=== PATIENT | male | born 1940 | race Caucasian/White ===

== ENCOUNTER 2024-10-25 19:07 | Observation (INO) | payer MEDICARE, OTHER, SELFPAY ==
[2024-10-25] VITALS (9 sets, daily range): BP systolic 118–154; BP diastolic 60–83; BMI 23.8; BMI 24.6
[2024-10-25 13:48] LABS: % Basophils 0.3 % (0-2); % Immature Granulocytes 0.5 % (0-0.5); % Lymphocytes 7.9 % (20.5-51.1); % Monocytes 15.7 % (1.7-9.3); % Neutrophils 74.6 % (42.2-75.2); Absolute Eosinophils 0.1 10^3/uL (0-0.7); Absolute Lymphocytes 0.7 10^3/uL (1.2-3.4); Absolute Monocytes 1.4 10^3/uL (0.1-0.6); Absolute Neutrophils 6.6 10^3/uL (1.4-6.5); Hematocrit 34.8 % (39.0-52.0); Mean Corp Hgb Conc. 34.5 g/dL (33.0-37.0); Mean Corpuscular Hgb 31.3 pg (27.0-31.0); Mean Corpuscular Volume 90.9 fL (80.0-94.0); Nucleated Red Blood Cells % 0 % (-); Platelet Count 278 10^3/uL (130-400); Red Blood Cell Count 3.83 10^6/uL (4.70-6.10); Red Cell Dist. Width 14.8 % (11.5-14.5); White Blood Cell Count 8.8 10^3/uL (4.8-10.8)
[2024-10-25 13:53] LABS: ALT (SGPT) 15 U/L (0-50); AST (SGOT) 19 U/L (17-59); Albumin 3.9 g/dl (3.5-5.0); Alkaline Phosphatase 64 U/L (38-126); Blood Urea Nitrogen 19 mg/dl (9-20); Calcium 11.1 mg/dl (8.4-10.2); Carbon Dioxide 27 mmol/L (22-30); Chloride 107 mmol/L (98-107); Glucose 87 mg/dl (70-99); Potassium 4.4 mmol/L (3.5-5.1); Sodium 142 mmol/L (135-145); Total Bilirubin 0.8 mg/dl (0.2-1.3); Total Protein 6.4 g/dl (6.3-8.2); eGFR 58.89
--- NOTE | 2024-10-25 15:58 | EDRN ---
Dr. English in room w/ pt.
--- NOTE | 2024-10-25 16:20 | ED.GENMED ---
History of Present Illness
General
Chief Complaint: Weakness
Source: patient and family
Time Seen by Provider: 10/25/24 15:49
History of Present Illness
History of Present Illness:
This patient is an 84-year-old male presents emergency department in the presence of his son and [id number]. 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 However, in
the last 2 weeks he has had progressive decline such that he is now using a cane and sometimes a walker associated with multiple falls. He is describing feeling weak, with occasional episodes of dizziness/imbalance when he is upright. He saw a
neurologist 2 weeks ago, and he was referred for cervical spine MRI which was scheduled for today. However, when he tried to get out of bed, he was unable to do so, and fell down onto the floor which he describes as sliding down. He did not suffer
any injury from that fall. However, yesterday again while getting out of bed he fell and suffered a left clavicle fracture. He denies fever, chills, diaphoresis, chest pain, palpitations, dyspnea, nausea, vomiting, urinary symptoms, incontinence,
numbness, tingling, focal weakness. He denies back pain. Family states that he seems to have greater difficulty with fine movements, that his voice sounds slightly weaker than usual, and with light activity he seems to get dyspneic and need to
rest.
Past History
Past History
ED Past Medical History: Other (Hyperparathyroidism, hypertension, spinal stenosis, COPD)
ED Past Surgical History: Other (Appendectomy, hernia, intussusception, GIST removal)
Social History
Tobacco: Non-smoker
Alcohol: None
Drug: None
Personal:
Living: with family
Phy Exam
Physical Exam
Physical Exam:
GENERAL: Alert , in no apparent distress
EYE: pupils equal and reactive, EOMI, no nystagmus, no photophobia
NECK: Supple, no significant adenopathy, no tenderness to palpation in the midline.
ENT: o/p clr, mmm, voice clear, no trismus, no drool.
CARDIAC: Regular rate and rhythm .
LUNGS: Clear breath sounds bilaterally, no acute respiratory distress, no wheezes/rales/rhonchi
ABDOMEN: Soft, without focal tenderness, no r/g
NEUROLOGICAL: Alert and oriented, no focal neuro deficits, [id number] normal, cranial nerves II through XII intact, sensation intact to light touch, motor 5 out of 5, 2+ patellar reflexes bilaterally
SKIN: Warm and dry, skin intact however several healing abrasions noted lower extremities. Resolving bruising noted to left upper extremity and left clavicle area.
MUSCULOSKELETAL: No edema, well perfused.
PSYCH: Normal and appropriate interaction.
Course
Orders/Labs/Results
Orders:
Orders
10/25/24 13:32
Complete Blood Count/With Diff Urgent
Comprehensive Metabolic Panel Urgent
10/25/24 Dinner
Cholesterol Lowering
At Your Request: Limited Participation
Cholesterol Lowering: Sodium, 2 Gram
10/25/24 16:16
Electrocardiogram (*1) Urgent
Reason for Study: Vertigo / Dizzy
EKG- Treatment ONCE
Urinalysis Reflex To Culture Urgent
Date Specimen was Collected: 10/26/24
Time Specimen was Collected: 10:59
10/25/24 16:17
CT Head W/o Iv Contrast Urgent
Comment:
Reason For Exam: weakness
10/25/24 16:24
Acetaminophen [Tylenol] 1,000 mg PO NOW STA
10/25/24 18:48
Admit/Transfer Patient As Directed
Co-Sign Provider:
Level of Care: Observation services
Assign to:: Medical/Surgical
Physician / Group: Alexys Chahal
Diagnosis: weakness, hypercalcemia
PRN Pain Medication Management As Directed
May give lesser potent ordered pain med per pt: Yes
preference::
Protocol:: Medication orders for pain may be administered in a
manner that supports deferring to patient preference
when the pt is:
- Requesting an ordered lesser potent pain medication.
Least to most potent pain medications are defined
as: acetaminophen < NSAID < tramadol < opioids
(morphine, oxycodone, hydromorphone).
- Requesting a lesser dose of the same medication IF
ORDERED.
- Requesting a less intrusive route of administration
if both routes are prescribed by the provider (PO <
IV).
10/25/24 18:49
Code Status As Directed
Resuscitation Status: Full Code
10/25/24 18:54
0.9% Sodium Chloride 500 ml [Nss] 500 ml IV BOLUS
10/25/24 21:16
0.9% Sodium Chloride 1000 ml [Nss] 1,000 ml IV 100 mls/hr
Bupropion Regular Release [Wellbutrin Regular Release] 100 mg PO BID
10/25/24 21:16
Activity As Directed
Activity Level: Out of Bed-Early Mobility
Vital Signs As Directed
Frequency: Per unit guidelines
Weight As Directed
Frequency: Once
Comment: on admission
DX Deep Vein Thrombosis Video Routine
10/25/24 22:00
Alprazolam [Xanax] 0.5 mg PO HS
Atorvastatin [Lipitor] 10 mg PO HS
Finasteride [Proscar] 5 mg PO HS
10/25/24 23:00
Acetaminophen [Tylenol] 650 mg PO Q4HPRN PRN
10/26/24 06:59
Basic Metabolic Panel IN AM
10/26/24 08:00
Amlodipine [Norvasc] 5 mg PO DAILY
Budesonide/Formoterol 160/4.5 [Symbicort 160/4.5 Mcg Inhaler] 2 puff INH R BID
Cholecalciferol (Vitamin D3) [VITAMIN D3 (cholecalciferol)] 25 mcg PO DAILY
Escitalopram Oxalate [Lexapro] 20 mg PO DAILY
Metoprolol Xl [Toprol Xl] 50 mg PO DAILY
Pantoprazole [Protonix] 40 mg PO DAILY
Sodium/Potassium Phosphate Mix [Neutra-Phos Powder Packet] 1 mg PO DAILY
10/26/24 18:00
Enoxaparin Sodium [Lovenox] 40 mg SC QPM
Abnormal Lab Results
10/25/24
13:32
RBC 3.83 L 10^6/uL
(4.70-6.10)
Hgb 12.0 L g/dL
(13.0-18.0)
Hct 34.8 L %
(39.0-52.0)
MCH 31.3 H pg
(27.0-31.0)
RDW 14.8 H %
(11.5-14.5)
Absolute Neuts (auto) 6.6 H 10^3/uL
(1.4-6.5)
Absolute Lymphs (auto) 0.7 L 10^3/uL
(1.2-3.4)
Absolute Monos (auto) 1.4 H 10^3/uL
(0.1-0.6)
Lymphocytes % 7.9 L %
(20.5-51.1)
Monocytes % 15.7 H %
(1.7-9.3)
Calcium 11.1 H mg/dl
(8.4-10.2)
10/25/24 13:32
10/25/24 13:32
Vital Signs
Initial and Last Documented VS:
Initial Vital Signs
Temp Pulse Resp BP Pulse Ox
97.6 F 75 18 118/63 97
10/25/24 13:23 10/25/24 13:23 10/25/24 13:23 10/25/24 13:23 10/25/24 13:23
Last Documented Vital Signs
Temp Pulse Resp BP Pulse Ox
98.1 F 89 18 118/72 98
10/29/24 13:53 10/29/24 13:53 10/29/24 13:53 10/29/24 13:53 10/29/24 13:53
*Critical Care Note
Total Time (30-74mins, 75-104mins- exclusive of procedures): Not Applicable
Update Note
Update Note:
Patient presents to the Emergency Department with ___progressive weakness and falls
Number and Complexity of Problems Addressed at the Encounter
� Chronic conditions affecting care:
� Acute Exacerbation and/or Progression of Chronic Illness:
� Differential Diagnosis includes: But not limited to MS, myasthenia gravis, degenerative disease, Parkinson-like syndrome, etc. etc. etc.
Amount and/or Complexity of Data to be Reviewed and Analyzed
� I performed an independent evaluation of and my interpretation is:
EKG:Read by me, normal sinus rhythm, normal rate, normal axis, no acute ischemia
CT:No acute intracranial abnormality noted.
Findings of possible acute on chronic maxillary sinusitis. Recommend clinical correlation.
Xrays:
Laboratory Studies:Mild anemia noted, hyper calcium level noted in his baseline as per son
Other:
� Review of other/old records reveals:
� Clinical information was obtained by an independent historian: who is an ED physician, [id number] both of whom are bedside
� Prescriptions/Medications Considered but not given:
� Further testing considered but not performed:
Risk of Complications and/or Morbidity or Mortality of Patient Management
� Social determinants of health affecting care:
� Discussion with other providers (PCP, Hospitalists, Consultants, etc):
� Escalation of care including admission/observation vs risk of discharge considered:Patient is not able to return to independent living situation where he has at this time given his progressive symptoms. Recommend overnight
admission/observation, neuroconsult in the morning, discussed with hospitalist the plan. Family aware and in agreement.
ED Attending Note
-
Portions of this chart may have been created with voice recognition software.� Occasional wrong word or��sound alike� substitutions may have occurred due to the inherent limitations of voice recognition software.
Discharge Plan
Departure
Patient Disposition: Admit
Date of Disposition: 10/25/24
Time of Disposition: 17:48
Presentation/result/management discussed w/ accepting MD/DO: Hospitalist
Condition: Good
Discharge Problem:
Weakness
Interventions
Interventions:
*General Assessment Last Done: 10/25/24 16:31
*Neglect/Abuse Screening Last Done: 10/25/24 16:32
*ED- Fall Risk Assessment Last Done: 10/25/24 16:31
*Nursing Disposition Last Done: 10/25/24 21:19
ED- Cardiac Assessment Last Done: 10/25/24 16:40
ED- Neurological Assessment Last Done: 10/25/24 16:40
ED- Pulmonary Assessment Last Done: 10/25/24 16:40
Discharge Date and Time
Discharge Date/Time: 10/25/24 21:20
[2024-10-25] MEDS: TYLENOL 1000 MG PO (16:29)
--- NOTE | 2024-10-25 17:58 | HPS.HSE ---
Family Physician
-
Family Physician: Neo Varela
Chief Complaint
-
generalized weakness and recurrent falls
History of Present Illness
Patient is a 84-year-old male with past medical history significant for hypertension, COPD, hyperparathyroidism and spinal stenosis who presented to [facility] ED for evaluation of generalized weakness and recurrent falls. Patient son and DIL brought
patient in for evaluation following a 2 week decline. 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 Over the past two weeks it is reported that patient has had increased weakness requiring a cane and/or walker
to ambulate. He reports recurrent falls over past two weeks. He reports feeling weak with intermittent dizziness/imbalance when he is standing. Patient saw neurology 2 weeks ago who ordered a cervical spine MRI, which was scheduled for today. When
patient woke this morning he was unable to get out of bed and slid down side of bed to floor from profound weakness. He denies any injury with today's fall. Patient had a fall yesterday resulting in a left clavicle fracture. Patient denies any
fevers, chills, chest pain, cough, shortness of breath, nausea, vomiting, urinary symptoms, incontinence, numbness or tingling.
Medical History
Past Medical History
Past Medical History: Reports Other
Additional Past Medical History:
hypertension
hyperlipidemia
COPD
hyperparathyroidism
spinal stenosis
BPH
depression/anxiety
GERD
Past Surgical History: Reports Other
Additional Past Surgical History:
appendectony
hernia repair
intussusception
GIST removal
Social History
Tobacco: Non-smoker
Alcohol: None
Drug: None
Personal:
Living: With Family
Employment: Retired
Family History
Family History: Not pertinent
Allergies / Home Medications
Allergies reflects when Allergies were last updated in [employer].
Home Medications with original date entered in [employer]
Allergy/Medication List:
Allergies
Allergy/AdvReac Type Severity Reaction Status Date / Time
No Known Allergies Allergy Verified 10/25/24 13:28
Home Medications
alprazolam 1 mg tablet (Xanax) 0.5 mg PO HS 10/25/24
amlodipine 5 mg tablet 5 mg PO DAILY 10/25/24
bupropion HCl 100 mg tablet 100 mg PO BID 10/25/24
cholecalciferol (vitamin D3) 25 mcg (1,000 unit) tablet (Vitamin D3) 25 mcg PO DAILY 10/25/24
escitalopram oxalate 20 mg tablet (Lexapro) 20 mg PO DAILY 10/25/24
finasteride 5 mg tablet 5 mg PO HS 10/25/24
fluticasone furoate 100 mcg-vilanterol 25 mcg/dose inhalation powder (Breo Ellipta) 1 inh inhalation DAILY 10/25/24
metoprolol succinate 50 mg tablet,extended release 24 hr 50 mg PO DAILY 10/25/24
omeprazole 20 mg capsule,delayed release 20 mg PO DAILY 10/25/24
simvastatin 20 mg tablet 20 mg PO HS 10/25/24
sodium di- and monophosphate-potassium phos monobasic 250 mg tablet (Phosphorous) 1 tab PO DAILY 10/25/24
Review of Systems
-
History Source: Patient
Constitutional: Reports No Symptoms
EENT: Reports No Symptoms
Respiratory: Reports No Symptoms
Cardiac: Reports No Symptoms
Abdomen/GI: Reports No Symptoms
: Reports No Symptoms
Musculoskeletal: Reports No Symptoms
Skin: Reports No Symptoms
Neurological: Reports Dizzy and Weakness
Endocrine: Reports No Symptoms
Hematologic/Lymphatic: Reports No Symptoms
Psych: Reports No Symptoms
Physical Exam
Vital Signs
Vital Signs
Temp Pulse Resp BP Pulse Ox
97.6 F 66 19 136/60 99
10/25/24 13:23 10/25/24 17:00 10/25/24 17:00 10/25/24 17:00 10/25/24 17:00
Physical Exam
General: Well Developed, Well Nourished, No Apparent Distress, Comfortable and Conversant
HEENT: NormoCephalic, Moist mucous membranes, Atraumatic, [place] Conjunctivae, Nose Appears Normal and Ears Appear Normal
Respiratory: Clear
Cardiac: S1/S2 and Regular Rhythm
Breast: Deferred by me
GI: Soft, Non Tender, Non Distended and Normal Bowel Sounds; No Organomegaly
Rectal: Deferred by Provider
Genito-urinary: Deferred by me
Musculoskeletal: No Clubbing, No Cyanosis and No Edema
Skin: IV/Catheter Site and Other (multiple bilateral lower extremity healing abrasions, bruising to left upper extremity and clavicle present )
Neuro: Awake, Alert, AO x 3 and Nonfocal/grossly intact
Psych: Calm
Laboratory Results
-
10/25/24 13:32
10/25/24 13:32
Laboratory Results
Total Bilirubin 0.8 mg/dl (0.2-1.3) 10/25/24 13:32
AST 19 U/L (17-59) 10/25/24 13:32
ALT 15 U/L (0-50) 10/25/24 13:32
Alkaline Phosphatase 64 U/L (38-126) 10/25/24 13:32
Data Reviewed
-
CT Scan: Report Reviewed by me (Head: No acute intracranial abnormality noted. Findings of possible acute on chronic maxillary sinusitis. Recommend clinical correlation.)
Medical Tests (Nuc Med, Echo, EKG etc): Report Reviewed by me (EKG: NORMAL SINUS RHYTHM)
Lab Data: Labs Reviewed by me
Impression/Plan
-
IMPRESSION/PLAN:
#recurrent falls, generalized weakness
Head CT: No acute intracranial abnormality noted.
Findings of possible acute on chronic maxillary sinusitis. Recommend clinical correlation.
EKG: NORMAL SINUS RHYTHM
- Admit to telemetry
- Consult Neurology
- Consult PT/OT
- Case management consult
#hypercalcemia
#Hx hyperparathyroidism
Ca 11.1
- IVF
- monitor BMP
- consult Nephrology
#hypertension
- continue amlodipine and metoprolol
#hyperlipidemia
- continue simvastatin
#COPD
- continue Breo Ellipta
#BPH
- continue finasteride
#depression/anxiety
- continue alprazolam, bupropion, escitalopram
#GERD
- continue omeprazole
#spinal stenosis
Code status: full code
DVT prophylaxis: Lovenox sq
--- NOTE | 2024-10-25 20:06 | W.PN.UPDATE ---
Update Note
Progress Note Update
This note serves as an addendum to the H&P by lesson instructor JASON
Yolanda Cheatham
HPI
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
- BiB son and DIL vfor evaluation following a 2 week decline.
- for evaluation of generalized weakness and recurrent falls.
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
- over the past two weeks it is reported that patient has had increased weakness requiring a cane and/or walker to ambulate.
- associated with recurrent falls over past two weeks attributed to intermittent dizziness/imbalance when he is standing.
- Patient saw Neurology 2 weeks ago who ordered a cervical spine MRI, which was scheduled for today.
- When patient woke this morning he was unable to get out of bed and slid down side of bed to floor from profound weakness.
- He denies any injury with today's fall. Patient had a fall yesterday resulting in a left clavicle fracture.
ROS
Patient denies any fevers, chills, chest pain, cough, shortness of breath, nausea, vomiting, urinary symptoms, incontinence, numbness or tingling.
Vital Signs
Temp Pulse Resp BP Pulse Ox
97.6 F 72 19 145/64 99
10/25/24 13:23 10/25/24 20:00 10/25/24 20:00 10/25/24 20:00 10/25/24 17:16
PE
Gen: No Apparent Distress, Comfortable and Conversant
HEENT: NormoCephalic, Moist mucous membranes, Atraumatic,
Neck: supple
Lungs: CTA
Cor: S1 S2 RRR
Abdomen: Soft, Non Tender, Non Distended
PRODUCTION SKI REPAIRER: AAO3, NFND
MS: no edema
Skin: multiple bilateral lower extremity healing abrasions, bruising to left upper extremity and clavicle present
Psych: AAO3
Laboratory Tests
10/25/24
13:32
WBC 8.8
Hgb 12.0 L
Plt Count 278
Creatinine 1.2
eGFR 58.89
EKG
NORMAL SINUS RHYTHM
NORMAL ECG
NO PREVIOUS ECGS AVAILABLE
HCT
No acute intracranial abnormality noted.
Findings of possible acute on chronic maxillary sinusitis. Recommend clinical correlation.
NO PRIOR hospitalist or admission:
ASSESSMENT & PLAN
Recurrent falls, generalized weakness DDX : Dehydration , symtomatic Spinal stenosis, subacute CVA events
NEG HCT
NSR on EKG
- TLM
- MRI Brain
- PT/OT
- Neurology consult
Hypercalcemia : unremarkable EKG
HX hyperparathyroidism
Ca 11.1
- Total of 1.5L IV NS
- trend Ca
- Renal consult
Benign HTN
- c/w ASSEMBLIES AND INSTALLATIONS INSPECTOR amlodipine and metoprolol
Hyperlipidemia
- c/w simvastatin
COPD HX
- c/w ASSEMBLIES AND INSTALLATIONS INSPECTOR Breo Ellipta
BPH
- c/w finasteride
HX depression/anxiety
- c/w ASSEMBLIES AND INSTALLATIONS INSPECTOR alprazolam, bupropion, escitalopram
DVT Px: LMWH
Full ocde
Obs MS
[2024-10-25] MEDS: NSS 500 IV (21:06)
[2024-10-25] MEDS: LIPITOR 10 MG PO (21:52)
[2024-10-25] MEDS: WELLBUTRIN REGULAR RELEASE 100 MG PO (21:52)
[2024-10-25] MEDS: XANAX 0.5 MG PO (21:52)
[2024-10-25] MEDS: PROSCAR 5 MG PO (21:52)
[2024-10-25] MEDS: NSS 1000 IV (21:54)
[2024-10-26] MEDS: TYLENOL 650 MG PO (05:57)
[2024-10-26 07:00] VITALS: BP 159/75
[2024-10-26] MEDS: SYMBICORT 160/4.5 MCG INHALER 2 PUFF INH ×2 (07:38→20:06)
[2024-10-26 08:07] LABS: Blood Urea Nitrogen 14 mg/dl (9-20); Carbon Dioxide 23 mmol/L (22-30); Chloride 110 mmol/L (98-107); Estimated Creatinine Clearance 56 ml/min; Glucose 81 mg/dl (70-99); Sodium 141 mmol/L (135-145); eGFR > 60.00
--- NOTE | 2024-10-26 08:35 | W.CON.NEPH ---
Consultation
-
Date/Time Consultation Requested: 10/26/2024 7 AM
Date/Time Consultation Performed: 10/26/24 8 AM
Requesting Provider: Dr Chahal
Performing Provider: Dr Trejo
Reason for Consultation: hypercalcemia
Medical History
-
Chief Complaint: hypercalcemia
History of Present Illness:
Patient is a 84-year-old male with hypertension controlled on a multidrug regimen, COPD controlled with inhaler therapy, hyperparathyroidism for several years treated with Prolia every 6 months by his report, and spinal stenosis followed by pain
management who presented to ED for evaluation of generalized weakness and recurrent falls. Patient's son and DIL brought patient in for evaluation following a progressive 2 week decline. Patient is normally independent and is primary caregiver for
his with dementia. Over the past two weeks it is reported that patient has had increased weakness requiring a cane and/or walker to ambulate. He reports recurrent falls over past two weeks. He reports feeling weak with intermittent
dizziness/imbalance when he is standing. Patient saw neurology 2 weeks ago who ordered a cervical spine MRI, which was scheduled for today. When patient woke this morning he was unable to get out of bed and slid down side of bed to floor from
profound weakness. He denies any injury with today's fall. Patient had a fall yesterday resulting in a left clavicle fracture. Patient denies any fevers, chills, chest pain, cough, shortness of breath, nausea, vomiting, urinary symptoms,
incontinence, numbness or tingling.
Past Medical History
hypertension
hyperlipidemia
COPD
hyperparathyroidism
spinal stenosis
BPH
depression/anxiety
GERD
appendectony
hernia repair
intussusception
GIST removal
Social History
Tobacco: Non-Smoker
Alcohol: None
Family History
Family History: Not Pertinent
Allergies / Home Medications
Allergy/AdvReac Type Severity Reaction Status Date / Time
No Known Allergies Allergy Verified 10/25/24 13:28
�Medication �Instructions �Recorded �Confirmed �Type
alprazolam 1 mg tablet (Xanax) 0.5 mg PO HS 10/25/24 10/25/24 History
amlodipine 5 mg tablet 5 mg PO DAILY 10/25/24 10/25/24 History
bupropion HCl 100 mg tablet 100 mg PO BID 10/25/24 10/25/24 History
cholecalciferol (vitamin D3) 25 25 mcg PO DAILY 10/25/24 10/25/24 History
mcg (1,000 unit) tablet (Vitamin
D3)
escitalopram oxalate 20 mg tablet 20 mg PO DAILY 10/25/24 10/25/24 History
(Lexapro)
finasteride 5 mg tablet 5 mg PO HS 10/25/24 10/25/24 History
fluticasone furoate 100 1 inh inhalation DAILY 10/25/24 10/25/24 History
mcg-vilanterol 25 mcg/dose
inhalation powder (Breo Ellipta)
metoprolol succinate 50 mg 50 mg PO DAILY 10/25/24 10/25/24 History
tablet,extended release 24 hr
omeprazole 20 mg capsule,delayed 20 mg PO DAILY 10/25/24 10/25/24 History
release
simvastatin 20 mg tablet 20 mg PO HS 10/25/24 10/25/24 History
sodium di- and 1 tab PO DAILY 10/25/24 10/25/24 History
monophosphate-potassium phos
monobasic 250 mg tablet
(Phosphorous)
Review of Systems
-
Patient reports no pain, no issues with the eating
All other systems: Negative unless noted
Physical Exam
Vital Signs
Vital Signs
Temp Pulse Resp BP Pulse Ox
97.6 F 76 16 159/75 96
10/26/24 07:00 10/26/24 07:44 10/26/24 07:44 10/26/24 07:00 10/26/24 07:44
Lab Results
WBC 8.8 10^3/uL (4.8-10.8) 10/25/24 13:32
RBC 3.83 10^6/uL (4.70-6.10) L 10/25/24 13:32
Hgb 12.0 g/dL (13.0-18.0) L 10/25/24 13:32
Hct 34.8 % (39.0-52.0) L 10/25/24 13:32
Plt Count 278 10^3/uL (130-400) 10/25/24 13:32
Sodium 141 mmol/L (135-145) 10/26/24 06:59
Potassium 4.0 mmol/L (3.5-5.1) 10/26/24 06:59
Chloride 110 mmol/L (98-107) H 10/26/24 06:59
Carbon Dioxide 23 mmol/L (22-30) 10/26/24 06:59
BUN 14 mg/dl (9-20) 10/26/24 06:59
Creatinine 1.0 mg/dL (0.7-1.3) 10/26/24 06:59
eGFR > 60.00 10/26/24 06:59
Glucose 81 mg/dl (70-99) 10/26/24 06:59
Calcium 10.0 mg/dl (8.4-10.2) 10/26/24 06:59
Albumin 3.9 g/dl (3.5-5.0) 10/25/24 13:32
Laboratory Tests
10/25/24 10/26/24
13:32 06:59
Calcium 11.1 H
PTH Intact 268.0 H
Physical Exam
Patient is awake alert oriented and in no distress. Mood and affect were pleasant, insight and judgment were fair. Pupils are equal round and reactive to light, extraocular movements are intact, sclera were anicteric. Hearing was normal, ears and
nose are intact. Oropharynx was clear. Neck was supple with trachea midline and no thyromegaly. Heart was regular rate and rhythm without rubs. Lower extremities without edema. Lungs were clear to auscultation bilaterally and with normal
excursion. Abdomen was soft, nontender, with normal active bowel sounds, and no hepatosplenomegaly. Skin was without rash and with normal turgor. He was unable to recall his relations coordinator.
Data Reviewed
-
CT Scan: Report Reviewed by me (CT head 10/25/2024 no acute disease)
Medical Tests (Nuc Med, Echo etc): Image Personally Visualized and interpreted (EKG 10/25/2024 by my read normal sinus rhythm)
Labs: Labs Reviewed by me
Assessment/Plan
-
Assessment
Falls, weakness
Hypercalcemia
Primary hyperparathyroidism
Hypertension
COPD
BPH
Spinal stenosis
Plan
Laboratory values consistent with primary hyperparathyroidism
He has no recollection if he has ever been on Cinacalcet
I have not met this gentleman previously though he does appear to be somewhat confused
Calcium has improved with IV fluids however
Check phosphorus
If calcium rises again, would use Cinacalcet
Hold on phosphorus supplementation
[2024-10-26] MEDS: LEXAPRO 20 MG PO (08:42)
[2024-10-26] MEDS: WELLBUTRIN REGULAR RELEASE 100 MG PO ×2 (08:42→20:45)
[2024-10-26] MEDS: VITAMIN D3 (cholecalciferol) 25 MCG PO (08:42)
[2024-10-26] MEDS: PROTONIX 40 MG PO (08:42)
[2024-10-26] MEDS: TOPROL XL 50 MG PO (08:42)
[2024-10-26] MEDS: NEUTRA-PHOS POWDER PACKET 1 MG PO (08:42)
[2024-10-26] MEDS: NORVASC 5 MG PO (08:42)
[2024-10-26 09:27] LABS: Phosphorus 2.4 mg/dl (2.5-4.5)
[2024-10-26 11:25] LABS: Urine Albumin Negative (Neg - Trace); Urine Bilirubin Negative (Negative); Urine Character Clear (Clear); Urine Color Yellow; Urine Glucose Negative (Negative); Urine Ketone 2+ (Negative); Urine Leukocyte Negative (Negative); Urine Nitrite Negative (Negative); Urine Occult Blood Negative (Negative); Urine Urobilinogen Negative (Neg - 1+)
--- NOTE | 2024-10-26 14:21 | W.PN.HOSP.TC ---
Today's Communication/Plan
-
await neuro eval
PT/OT
Assessment / Plan
Assessment / Plan
pt is an 84 year old male
recurrent falls, generalized weakness--sees neuro at [facility]--heat CT without acute findings--brain MRI also without acute findings but possible acute on chronic sinusitis--Parkinson's, PMR, spinal stenosis with DJD all possible--await neuro eval,
possible need for MRI C/T/L/S spine--PT/OT--might need SNF
hypercalcemia--Hx primary hyperparathyroidism --usual calcium level is 11.7--apprec renal--hold on phos repletion--calcium 11.1 with elevated iPTH--cont IVF
Essential hypertension--continue amlodipine and metoprolol
hyperlipidemia--continue simvastatin
COPD--continue Breo Ellipta
BPH--continue finasteride
depression/anxiety--continue alprazolam, bupropion, escitalopram
GERD--continue omeprazole
spinal stenosis--may need MRIs as above
acute on chronic sinusitis--noted--would not start ABX at this point--may need outpt ENT
Code status--full code
DVT proph--Lovenox sq
Anticipated Discharge: > 48 hours
Subjective/Interval History
-
Date of Service: October 26, 2024
pt just returned from MRI brain--he confirms and family confirms his abrupt 2 week decline with falls, weakness
Objective Data
-
Labs:
Laboratory Results
10/26/24 10/26/24
06:00 06:59
Sodium 141
Potassium 4.0
Chloride 110 H
Carbon Dioxide 23
BUN 14
Creatinine 1.0
Glucose 81
Calcium Cancelled 10.0
Vital Signs:
max temp for 24 hours
10/25/24
23:02
Temp 98.1 F
Vital Signs
Temp Pulse Resp BP Pulse Ox
97.6 F 76 16 159/75 96
10/26/24 07:00 10/26/24 07:44 10/26/24 07:44 10/26/24 07:00 10/26/24 08:40
Review of Systems
-
All other systems: Reviewed and negative
Neuro: Reports Weakness
Physical Exam
-
General: Well Developed, Well Nourished and No Apparent Distress
HEENT: Normocephalic and Atraumatic
Respiratory: Clear to Auscultation; Negative Wheezes or Rhonchi
Cardiac: Regular Rhythm and S1/S2; Negative Murmur
GI: Soft, Nontender, Normal Bowel Sounds and Distended
Musculoskeletal: No Clubbing, No Cyanosis and No Edema
Neuro: Awake, Alert and Nonfocal/Grossly Intact; Negative Tremors, Slurred Speech or Facial Droop
[2024-10-26 15:00] VITALS: BP 156/79
[2024-10-26] MEDS: XANAX 0.25 MG PO (15:19)
[2024-10-26 16:15] VITALS: BP 141/75; BP 143/79; PULSE 76; O2SAT 98
[2024-10-26 16:19] VITALS: BP 141/75; BP 143/79; PULSE 75; O2SAT 97
--- NOTE | 2024-10-26 16:24 | CM ---
Initial assessment completed with pt at bedside and f/u conversation with son via phone.
Pt is an 84yr old male admitted with weakness and falls with hypercalcemia
Pt is OBS and BLACK signed and on chart.
At baseline, pt lives [place] his in an [place] apartment at [facility].
Pt is Indep at baseline with mobility and ADLs.
Pt is the primary caregiver to his who is blind with Dementia.
Pt does light meal prep, and eats primary meals at [facility]. and drives.
Pt has a RW, cane, shower bars, toilet bars
Pt has no hx/current use of VN/SNF for his personal use, but does have [employer] 1x weekly to aide with companionship to his and light housekeeping.
Pt is anxious to dc, though son feels he needs to be seen by PT/OT and recommendations from them need to be considered prior to dc.
PCP; Neo Varela
Pharm; [facility]
PLAN; TBD based on hospital stay
--- NOTE | 2024-10-26 16:43 | CON.NEURO ---
Neuro Assessment/Plan
Assessment
84 year old man with weakness, exam with parkinsonism
start Sinemet 25/100 TID before meals, absorbs better on an empty stomach
not weak on exam, and no brisk/pathological reflexes to suggest myelopathy from his known spinal stenosis
He will not consider spinal surgery, so there's no point in more imaging.
ok to discharge
Consultation
Order
Date of Consultation: 10/26/24
Requesting Provider: Mary Kate Marin
Reason for Consult: weakness
Subjective/Objective
Subjective Data
Date of Service: October 26, 2024
from h&p:
Patient is a 84-year-old male with past medical history significant for hypertension, COPD, hyperparathyroidism and spinal stenosis who presented to [facility] ED for evaluation of generalized weakness and recurrent falls. Patient son and DIL brought
patient in for evaluation following a 2 week decline. 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 Over the past two weeks it is reported that patient has had increased weakness requiring a cane and/or walker
to ambulate. He reports recurrent falls over past two weeks. He reports feeling weak with intermittent dizziness/imbalance when he is standing. Patient saw neurology 2 weeks ago who ordered a cervical spine MRI, which was scheduled for today. When
patient woke this morning he was unable to get out of bed and slid down side of bed to floor from profound weakness. He denies any injury with today's fall. Patient had a fall yesterday resulting in a left clavicle fracture. Patient denies any
fevers, chills, chest pain, cough, shortness of breath, nausea, vomiting, urinary symptoms, incontinence, numbness or tingling.
Patient with obvious Parkinsonism, and does admit to gradually softening voice, poor handwriting, resting tremor, and shuffling gait. No numbness. at admission found to have hypercalcemia, hyperparathyroid, improved with fluids
Objective Data
Vital Signs
Temp Pulse Resp BP Pulse Ox
36.7 C 74 18 156/79 98
10/26/24 15:00 10/26/24 15:00 10/26/24 15:00 10/26/24 15:00 10/26/24 15:00
Lab Results
10/25/24 13:32
10/26/24 06:59
Sodium 141 mmol/L (135-145) 10/26/24 06:59
Potassium 4.0 mmol/L (3.5-5.1) 10/26/24 06:59
BUN 14 mg/dl (9-20) 10/26/24 06:59
Glucose 81 mg/dl (70-99) 10/26/24 06:59
Calcium 10.0 mg/dl (8.4-10.2) 10/26/24 06:59
Phosphorus 2.4 mg/dl (2.5-4.5) L 10/26/24 06:59
Patient Allergies
No Known Allergies Allergy (Verified 10/25/24 13:28)
Physical Exam
-
AAOx3, speech soft, clear
masked facies,
grossly full strength
sensation intact to pinprick; age appropriate vibratory loss
+resting tremor, +bradykinesia, +cogwheel rigidity
DTR 1-2+, no Ledesma, no Babinski
Medications
-
Active Medications
Generic Name Dose Route Start Last Admin
Trade Name Freq PRN Reason Stop Dose Admin
Acetaminophen 650 mg 10/25/24 23:00 10/26/24 05:57
Acetaminophen 325 Mg Tablet PO 11/22/24 22:59 650 mg
Q4HPRN PRN Administration
mild pain/LIRIANO/temp> 100.4F
Alprazolam 0.5 mg 10/25/24 22:00 10/25/24 21:52
Alprazolam 1 Mg Tablet PO 11/22/24 21:59 0.5 mg
HS OTIS Administration
Alprazolam 0.25 mg 10/26/24 15:05 10/26/24 15:19
Alprazolam 0.25 Mg Tablet PO 11/23/24 15:04 0.25 mg
Q8HPRN PRN Administration
anxiety
Amlodipine Besylate 5 mg 10/26/24 08:00 10/26/24 08:42
Amlodipine 5 Mg Tablet PO 11/23/24 07:59 5 mg
DAILY OTIS Administration
Atorvastatin Calcium 10 mg 10/25/24 22:00 10/25/24 21:52
Atorvastatin (Lipitor) 10 Mg Tablet PO 11/22/24 21:59 10 mg
HS OTIS Administration
Budesonide/Formoterol Fumarate 2 puff 10/26/24 08:00 10/26/24 07:38
Symbicort Inhaler 160/4.5 INH 11/23/24 07:59 2 puff
R BID OTIS Administration
Bupropion HCl 100 mg 10/25/24 21:16 10/26/24 08:42
Bupropion Regular Release 100 Mg Tablet PO 11/22/24 21:15 100 mg
BID OTIS Administration
Cholecalciferol 25 mcg 10/26/24 08:00 10/26/24 08:42
Cholecalciferol (Vitamin D3) 25 Mcg Tablet (1,000 Units) PO 11/23/24 07:59 25 mcg
DAILY OTIS Administration
Enoxaparin Sodium 40 mg 10/26/24 18:00
Enoxaparin Sodium 40 Mg/0.4 Ml Syringe SC 11/23/24 17:59
QPM OTIS
Escitalopram Oxalate 20 mg 10/26/24 08:00 10/26/24 08:42
Escitalopram 20 Mg Tablet PO 11/23/24 07:59 20 mg
DAILY OTIS Administration
Finasteride 5 mg 10/25/24 22:00 10/25/24 21:52
Finasteride 5 Mg Tablet PO 11/22/24 21:59 5 mg
HS OTIS Administration
Metoprolol Succinate 50 mg 10/26/24 08:00 10/26/24 08:42
Metoprolol 50 Mg Extended Release Tablet PO 11/23/24 07:59 50 mg
DAILY OTIS Administration
Miconazole Nitrate 0 applic 10/26/24 20:00
Miconazole Powder Bottle TOPICAL 11/23/24 19:59
BID OTIS
Pantoprazole Sodium 40 mg 10/26/24 08:00 10/26/24 08:42
Pantoprazole 40 Mg Delayed Release Tablet PO 11/23/24 07:59 40 mg
DAILY OTIS Administration
Potassium Phosphate 250 mg 10/26/24 08:55
Neutra-Phos Powder Concentrate (250 Mg) Packet PO 11/23/24 07:59
DAILY OTIS
Sodium Chloride 0 flush 10/25/24 22:00
Sodium Chloride 0.9% (Flush) Syringe IV 11/22/24 21:59
PER PROTOCOL OTIS
Home Medications
�Medication �Instructions �Recorded
alprazolam 1 mg tablet (Xanax) 0.5 mg PO HS 10/25/24
amlodipine 5 mg tablet 5 mg PO DAILY 10/25/24
bupropion HCl 100 mg tablet 100 mg PO BID 10/25/24
cholecalciferol (vitamin D3) 25 25 mcg PO DAILY 10/25/24
mcg (1,000 unit) tablet (Vitamin
D3)
escitalopram oxalate 20 mg tablet 20 mg PO DAILY 10/25/24
(Lexapro)
finasteride 5 mg tablet 5 mg PO HS 10/25/24
fluticasone furoate 100 1 inh inhalation DAILY 10/25/24
mcg-vilanterol 25 mcg/dose
inhalation powder (Breo Ellipta)
metoprolol succinate 50 mg 50 mg PO DAILY 10/25/24
tablet,extended release 24 hr
omeprazole 20 mg capsule,delayed 20 mg PO DAILY 10/25/24
release
simvastatin 20 mg tablet 20 mg PO HS 10/25/24
sodium di- and 1 tab PO DAILY 10/25/24
monophosphate-potassium phos
monobasic 250 mg tablet
(Phosphorous)
[2024-10-26] MEDS: SINEMET 25-100 1 TABLET PO (17:08)
[2024-10-26] MEDS: LOVENOX 40 MG SC (17:08)
[2024-10-26] MEDS: DESENEX/MITRAZOL/ZEASORB 1 APPLIC TOPICAL (20:45)
[2024-10-26] MEDS: LIPITOR 10 MG PO (21:13)
[2024-10-26] MEDS: PROSCAR 5 MG PO (21:13)
[2024-10-26] MEDS: XANAX 0.5 MG PO (21:18)
[2024-10-26 23:06] VITALS: BP 145/76
[2024-10-27] MEDS: TYLENOL 650 MG PO (06:30)
[2024-10-27] MEDS: SINEMET 25-100 1 TABLET PO ×3 (06:31→17:13)
[2024-10-27] MEDS: OCEAN, SALINE MIST 2 SPRAYS NASAL (06:32)
[2024-10-27 07:00] VITALS: BP 145/76
[2024-10-27 07:05] LABS: Blood Urea Nitrogen 14 mg/dl (9-20); Calcium 10.8 mg/dl (8.4-10.2); Carbon Dioxide 25 mmol/L (22-30); Chloride 108 mmol/L (98-107); Estimated Creatinine Clearance 56 ml/min; Glucose 84 mg/dl (70-99); Potassium 4.4 mmol/L (3.5-5.1); Sodium 140 mmol/L (135-145); eGFR > 60.00
[2024-10-27] MEDS: SYMBICORT 160/4.5 MCG INHALER 2 PUFF INH ×2 (07:23→20:01)
[2024-10-27] MEDS: VITAMIN D3 (cholecalciferol) 25 MCG PO (08:12)
[2024-10-27] MEDS: NORVASC 5 MG PO (08:12)
[2024-10-27] MEDS: PROTONIX 40 MG PO (08:12)
[2024-10-27] MEDS: TOPROL XL 50 MG PO (08:12)
[2024-10-27] MEDS: WELLBUTRIN REGULAR RELEASE 100 MG PO ×2 (08:12→20:33)
[2024-10-27] MEDS: LEXAPRO 20 MG PO (08:13)
[2024-10-27] MEDS: DESENEX/MITRAZOL/ZEASORB 1 APPLIC TOPICAL ×2 (08:13→20:36)
--- NOTE | 2024-10-27 12:29 | W.PN.HOSP.TC ---
Today's Communication/Plan
-
cont sinemet
cleared for d/c since Sat 10/26
Assessment / Plan
Assessment / Plan
pt is an 84 year old male
recurrent falls, generalized weakness--sees neuro at [facility]--head CT without acute findings--brain MRI also without acute findings but possible acute on chronic sinusitis--Parkinson's likely diagnosis from neuro--started Sinemet--cleared for d/c since
10/26/24--apprec neuro/PT/OT eval--nneds SNF
hypercalcemia--Hx primary hyperparathyroidism --usual calcium level is 11.7--apprec renal--hold on phos repletion--calcium 10.8 with elevated iPTH
Essential hypertension--continue amlodipine and metoprolol
hyperlipidemia--continue simvastatin
COPD--continue Breo Ellipta
BPH--continue finasteride
depression/anxiety--continue alprazolam, bupropion, escitalopram
GERD--continue omeprazole
spinal stenosis--may need MRIs as above
acute on chronic sinusitis--noted--would not start ABX at this point--may need outpt ENT
Code status--full code
DVT proph--Lovenox sq
Anticipated Discharge: Within 24 hours
Subjective/Interval History
-
Date of Service: October 27, 2024
pt without c/o
Objective Data
-
Labs:
Laboratory Results
10/27/24
05:46
Sodium 140
Potassium 4.4
Chloride 108 H
Carbon Dioxide 25
BUN 14
Creatinine 1.0
Glucose 84
Calcium 10.8 H
Vital Signs:
max temp for 24 hours
10/26/24
23:06
Temp 98.4 F
Vital Signs
Temp Pulse Resp BP Pulse Ox
97.7 F 70 14 145/76 97
10/27/24 07:00 10/27/24 08:12 10/27/24 07:27 10/27/24 08:12 10/27/24 07:27
I&O
10/26/24 10/27/24 10/28/24
06:59 06:59 06:59
Intake Total 480 / 480
Output Total 1125 / 1125
Balance -645 / -645
Review of Systems
-
All other systems: Reviewed and negative
Physical Exam
-
General: Appears Chronically Ill
HEENT: Normocephalic and Atraumatic
Respiratory: Clear to Auscultation; Negative Wheezes or Rhonchi
Cardiac: Regular Rhythm and S1/S2; Negative Murmur
GI: Soft, Nontender, Nondistended and Normal Bowel Sounds
Musculoskeletal: No Clubbing, No Cyanosis and No Edema
Psych: Calm
--- NOTE | 2024-10-27 12:58 | W.PN.NEPH.PH ---
Today's Communication / Plan
-
Sensipar
Assessment/Plan
-
Assessment
Falls, weakness
Hypercalcemia
Primary hyperparathyroidism
Hypertension
COPD
BPH
Spinal stenosis
Plan
Laboratory values consistent with primary hyperparathyroidism
He has no recollection if he has ever been on Cinacalcet
Given rising calcium, will start Sensipar at this time
Hold on phosphorus supplementation with initiation of Sensipar
-
-
Date of Service: October 27, 2024
CC / HPI / ROS
-
Chief Complaint:
Hypercalcemia
History of Present Illness:
Calcium back up to 10.8
BP stable
Renal function stable
Now on Sinemet for Parkinson's
Reports poor memory
Review of Systems:
No chest pain or shortness of breath
Labs
-
Labs:
WBC 8.8 10^3/uL (4.8-10.8) 10/25/24 13:32
RBC 3.83 10^6/uL (4.70-6.10) L 10/25/24 13:32
Hgb 12.0 g/dL (13.0-18.0) L 10/25/24 13:32
Hct 34.8 % (39.0-52.0) L 10/25/24 13:32
Plt Count 278 10^3/uL (130-400) 10/25/24 13:32
Sodium 140 mmol/L (135-145) 10/27/24 05:46
Potassium 4.4 mmol/L (3.5-5.1) 10/27/24 05:46
Chloride 108 mmol/L (98-107) H 10/27/24 05:46
Carbon Dioxide 25 mmol/L (22-30) 10/27/24 05:46
BUN 14 mg/dl (9-20) 10/27/24 05:46
Creatinine 1.0 mg/dL (0.7-1.3) 10/27/24 05:46
eGFR > 60.00 10/27/24 05:46
Glucose 84 mg/dl (70-99) 10/27/24 05:46
Calcium 10.8 mg/dl (8.4-10.2) H 10/27/24 05:46
Phosphorus 2.4 mg/dl (2.5-4.5) L 10/26/24 06:59
Albumin 3.9 g/dl (3.5-5.0) 10/25/24 13:32
Physical Exam
-
Vital Signs:
Vital Signs
Temp Pulse Resp BP Pulse Ox
97.7 F 70 14 145/76 97
10/27/24 07:00 10/27/24 08:12 10/27/24 07:27 10/27/24 08:12 10/27/24 07:27
Cardiovascular:: Regular rate and rhythm
Respiratory:: Bilateral: CTA
Lung Excursion:: Normal
Abdomen:: Nontender and Soft
Bowel Sounds:: Normal
Extremity Edema:: None: Bilateral:
[2024-10-27] MEDS: SENSIPAR 30 MG PO (13:42)
[2024-10-27] MEDS: TUMS CHEWABLE TABLET 200 MG PO (14:29)
[2024-10-27 15:00] VITALS: BP 148/79
[2024-10-27] MEDS: LOVENOX 40 MG SC (17:13)
[2024-10-27] MEDS: XANAX 0.5 MG PO (20:35)
[2024-10-27] MEDS: LIPITOR 10 MG PO (20:35)
[2024-10-27] MEDS: PROSCAR 5 MG PO (20:35)
[2024-10-27 23:25] VITALS: BP 143/72
[2024-10-28 06:45] LABS: Hematocrit 35.6 % (39.0-52.0); Hemoglobin 12.5 g/dL (13.0-18.0); Mean Corp Hgb Conc. 35.1 g/dL (33.0-37.0); Mean Corpuscular Hgb 31.1 pg (27.0-31.0); Mean Corpuscular Volume 88.6 fL (80.0-94.0); Mean Platelet Volume 10.2 fL (7.4-10.4); Platelet Count 260 10^3/uL (130-400); Red Blood Cell Count 4.02 10^6/uL (4.70-6.10); Red Cell Dist. Width 13.9 % (11.5-14.5)
[2024-10-28 07:20] LABS: Blood Urea Nitrogen 18 mg/dl (9-20); Calcium 10.5 mg/dl (8.4-10.2); Carbon Dioxide 23 mmol/L (22-30); Chloride 106 mmol/L (98-107); Estimated Creatinine Clearance 51 ml/min; Glucose 86 mg/dl (70-99); Magnesium 1.8 mg/dl (1.6-2.3); Potassium 4.3 mmol/L (3.5-5.1); Sodium 139 mmol/L (135-145); eGFR > 60.00
[2024-10-28 07:30] VITALS: BP 157/78
[2024-10-28] MEDS: SYMBICORT 160/4.5 MCG INHALER 2 PUFF INH ×2 (08:00→19:26)
[2024-10-28] MEDS: SINEMET 25-100 1 TABLET PO ×3 (08:21→16:22)
[2024-10-28] MEDS: DESENEX/MITRAZOL/ZEASORB 1 APPLIC TOPICAL ×2 (08:21→19:23)
[2024-10-28] MEDS: VITAMIN D3 (cholecalciferol) 25 MCG PO (08:22)
[2024-10-28] MEDS: PROTONIX 40 MG PO (08:22)
[2024-10-28] MEDS: WELLBUTRIN REGULAR RELEASE 100 MG PO ×2 (08:22→19:22)
[2024-10-28] MEDS: TOPROL XL 50 MG PO (08:22)
[2024-10-28] MEDS: LEXAPRO 20 MG PO (08:22)
[2024-10-28] MEDS: SENSIPAR 30 MG PO (08:25)
[2024-10-28] MEDS: NORVASC 5 MG PO (08:25)
[2024-10-28] MEDS: TYLENOL 650 MG PO ×2 (08:26→21:02)
[2024-10-28 09:29] VITALS: BP 146/83; PULSE 84; O2SAT 96
--- NOTE | 2024-10-28 09:33 | CM ---
Addendum entered by Beba Smith 10/28/24 15:45:
Patient has a bed at [facility] tomorrow, patient will have to private pay as patient is under Observation.
Addendum entered by Beba Smith 10/28/24 11:50:
Patient's son is agreeable to [facility], referral sent.
Original Note:
Chart reviewed and there are no beds available at [facility] today, patient is OBS and therefore patient cannot be skilled under his Medicare, manager of case reached out to [employer] to see if patient would qualify under
Waiver program however patient does not qualify, at this time patient will have to private pay for skilled placement.
Plan; Skilled placement cannot use insurance as patient is observation, family will have to pay for skilled placement up to $500 per day.
[2024-10-28 10:02] VITALS: BP 146/83; PULSE 82; O2SAT 97
[2024-10-28] MEDS: MAGNESIUM SULFATE 50 IV (11:32)
[2024-10-28] MEDS: XANAX 0.25 MG PO (11:32)
--- NOTE | 2024-10-28 12:19 | W.PN.NEPH.PH ---
Today's Communication / Plan
-
Continue Sensipar
Assessment/Plan
-
Assessment
Falls, weakness
Hypercalcemia
Primary hyperparathyroidism
Hypertension
COPD
BPH
Spinal stenosis
Plan
Laboratory values consistent with primary hyperparathyroidism
He has no recollection if he has ever been on Cinacalcet
Given rising calcium, will start Sensipar at this time
Hold on phosphorus supplementation with initiation of Sensipar
Continue Sensipar and outpatient follow-up with endocrinology
Will be okay for discharge from renal standpoint
-
-
Date of Service: October 28, 2024
CC / HPI / ROS
-
Chief Complaint:
Hypercalcemia
History of Present Illness:
Calcium back up to 10.8
BP stable
Renal function stable
Now on Sinemet for Parkinson's
Reports poor memory
Review of Systems:
No chest pain or shortness of breath
Labs
-
Labs:
WBC 6.0 10^3/uL (4.8-10.8) 10/28/24 05:56
RBC 4.02 10^6/uL (4.70-6.10) L 10/28/24 05:56
Hgb 12.5 g/dL (13.0-18.0) L 10/28/24 05:56
Hct 35.6 % (39.0-52.0) L 10/28/24 05:56
Plt Count 260 10^3/uL (130-400) 10/28/24 05:56
Sodium 139 mmol/L (135-145) 10/28/24 05:56
Potassium 4.3 mmol/L (3.5-5.1) 10/28/24 05:56
Chloride 106 mmol/L (98-107) 10/28/24 05:56
Carbon Dioxide 23 mmol/L (22-30) 10/28/24 05:56
BUN 18 mg/dl (9-20) 10/28/24 05:56
Creatinine 1.1 mg/dL (0.7-1.3) 10/28/24 05:56
eGFR > 60.00 10/28/24 05:56
Glucose 86 mg/dl (70-99) 10/28/24 05:56
Calcium 10.5 mg/dl (8.4-10.2) H 10/28/24 05:56
Phosphorus 2.4 mg/dl (2.5-4.5) L 10/26/24 06:59
Albumin 3.9 g/dl (3.5-5.0) 10/25/24 13:32
Physical Exam
-
Vital Signs:
Vital Signs
Temp Pulse Resp BP Pulse Ox
98.2 F 68 14 157/78 97
10/28/24 07:30 10/28/24 08:03 10/28/24 08:03 10/28/24 07:30 10/28/24 08:30
Cardiovascular:: Regular rate and rhythm
Respiratory:: Bilateral: CTA
Lung Excursion:: Normal
Abdomen:: Nontender and Soft
Bowel Sounds:: Normal
Extremity Edema:: None: Bilateral:
--- NOTE | 2024-10-28 13:41 | W.PN.HOSP.TC ---
Addendum entered and electronically signed by Lita Rashid MD 10/28/24 14:28:
I saw and evaluated the patient. I reviewed the resident�s note and agree with findings and plan as documented in the resident�s note.
A/P:
# recurrent falls, generalized weakness; likely Parkinson's
head CT without acute findings, brain MRI also without acute findings but possible acute on chronic sinusitis
started Sinemet
awaiting SNF
# hypercalcemia 2/2 primary hyperparathyroidism
apprec renal
Sensipar per renal
hold on phos repletion
Encourage continued outpatient endocrinology follow-up
# Essential hypertension
continue amlodipine and metoprolol
# hyperlipidemia
continue simvastatin
# COPD
continue Breo Ellipta
# BPH
continue finasteride
# depression/anxiety
continue alprazolam, bupropion, escitalopram
# GERD
continue omeprazole
# spinal stenosis
# Acute on chronic sinusitis, noted
Clinically without significant symptom
Code status--full code
DVT proph--Lovenox sq
Original Note:
Today's Communication/Plan
-
Medically cleared to be discharged to SNF
Await on bed availability
Assessment / Plan
Assessment / Plan
Impression
Recurrent falls/generalized weakness
History of primary hypothyroidism/hypercalcemia
Essential hypertension
Hyperlipidemia
COPD
BPH
Depression/anxiety
GERD
Spinal stenosis
Acute on chronic sinusitis
Plan
Recurrent falls, generalized weakness--sees neuro at [facility]
Head CT without acute findings
Brain MRI also without acute findings
Neurology following
Continue carbidopa/levodopa
Medically stable to be discharged, PT/OT recommend SNF
Await for bed availability
Hx primary hyperparathyroidism/Hypercalcemia
Sees endocrinology outpatient
Started on Cinacalcet on admission
Nephrology following
Essential hypertension
continue amlodipine and metoprolol
hyperlipidemia
continue simvastatin
COPD
continue Breo Ellipta
BPH
continue finasteride
depression/anxiety
continue alprazolam, bupropion, escitalopram
GERD
continue omeprazole
spinal stenosis
may need MRIs as above
acute on chronic sinusitis--noted--would not start ABX at this point--may need outpt ENT
Code status--full code
DVT proph--Lovenox sq
Anticipated Discharge: 24 - 48 hours
Subjective/Interval History
-
Date of Service: October 28, 2024
No overnight events
Objective Data
-
Labs:
Laboratory Results
10/28/24
05:56
WBC 6.0
Hgb 12.5 L
Hct 35.6 L
Plt Count 260
Sodium 139
Potassium 4.3
Chloride 106
Carbon Dioxide 23
BUN 18
Creatinine 1.1
Glucose 86
Calcium 10.5 H
Vital Signs:
Vital Signs
Temp Pulse Resp BP Pulse Ox
98.2 F 68 14 157/78 97
10/28/24 07:30 10/28/24 08:03 10/28/24 08:03 10/28/24 07:30 10/28/24 08:30
I&O
10/27/24 10/28/24 10/29/24
06:59 06:59 06:59
Intake Total 480 / 480 960 / 960
Output Total 1125 / 1125
Balance -645 / -645 960 / 960
Review of Systems
-
All other systems: Reviewed and negative
Physical Exam
-
General: No Apparent Distress and Comfortable
HEENT: Normocephalic and Atraumatic
Respiratory: Clear to Auscultation
Cardiac: Regular Rhythm and S1/S2
GI: Nondistended
Musculoskeletal: No Edema
Neuro: Tremors (resting )
Psych: Calm
Data Reviewed
-
Labs: Labs Reviewed by me and Discussed with Physician
--- NOTE | 2024-10-28 15:38 | W.PN.UPDATE ---
Update Note
Progress Note Update
Spoke with son via phone about dc plan to SNF . Patient is medically/clincally stable for discharge. Bed will be available tomorrow at [facility].
[2024-10-28 15:40] VITALS: BP 145/70
[2024-10-28] MEDS: LOVENOX 40 MG SC (17:21)
[2024-10-28] MEDS: PROSCAR 5 MG PO (19:21)
[2024-10-28] MEDS: LIPITOR 10 MG PO (19:22)
[2024-10-28] MEDS: TUMS CHEWABLE TABLET 200 MG PO (19:34)
[2024-10-28] MEDS: XANAX 0.5 MG PO (21:02)
[2024-10-28 23:44] VITALS: BP 152/83
[2024-10-29 07:46] VITALS: BP 161/79
[2024-10-29 07:49] LABS: Hematocrit 35.3 % (39.0-52.0); Hemoglobin 12.5 g/dL (13.0-18.0); Mean Corp Hgb Conc. 35.4 g/dL (33.0-37.0); Mean Corpuscular Hgb 31.3 pg (27.0-31.0); Mean Corpuscular Volume 88.5 fL (80.0-94.0); Mean Platelet Volume 9.9 fL (7.4-10.4); Platelet Count 250 10^3/uL (130-400); Red Blood Cell Count 3.99 10^6/uL (4.70-6.10); Red Cell Dist. Width 13.9 % (11.5-14.5); White Blood Cell Count 5.4 10^3/uL (4.8-10.8)
[2024-10-29] MEDS: SYMBICORT 160/4.5 MCG INHALER 2 PUFF INH (07:52)
[2024-10-29 08:28] LABS: Blood Urea Nitrogen 23 mg/dl (9-20); Carbon Dioxide 24 mmol/L (22-30); Chloride 106 mmol/L (98-107); Estimated Creatinine Clearance 43 ml/min; Glucose 88 mg/dl (70-99); Magnesium 2.2 mg/dl (1.6-2.3); Potassium 4.2 mmol/L (3.5-5.1); Sodium 140 mmol/L (135-145)
[2024-10-29] MEDS: PROTONIX 40 MG PO (09:11)
[2024-10-29] MEDS: WELLBUTRIN REGULAR RELEASE 100 MG PO (09:11)
[2024-10-29] MEDS: SENSIPAR 30 MG PO (09:11)
[2024-10-29] MEDS: TOPROL XL 50 MG PO (09:11)
[2024-10-29] MEDS: LEXAPRO 20 MG PO (09:12)
[2024-10-29] MEDS: NORVASC 5 MG PO (09:12)
[2024-10-29] MEDS: VITAMIN D3 (cholecalciferol) 25 MCG PO (09:12)
[2024-10-29] MEDS: DESENEX/MITRAZOL/ZEASORB 1 APPLIC TOPICAL (09:13)
[2024-10-29] MEDS: SINEMET 25-100 1 TABLET PO ×2 (09:14→12:53)
--- NOTE | 2024-10-29 12:12 | W.PN.HOSP.TC ---
Addendum entered and electronically signed by Lita Rashid MD 10/29/24 12:59:
I saw and evaluated the patient. I reviewed the resident�s note and agree with findings and plan as documented in the resident�s note.
A/P:
# recurrent falls, generalized weakness; likely Parkinson's
head CT without acute findings, brain MRI also without acute findings but possible acute on chronic sinusitis
started Sinemet
For SNF today
# hypercalcemia 2/2 primary hyperparathyroidism
apprec renal
Cont Sensipar per renal
hold on phos repletion
Would hold vit D supplement until further directed by outpatient process trainer
Encourage continued outpatient endocrinology follow-up
# Essential hypertension
continue amlodipine and metoprolol
# hyperlipidemia
continue simvastatin
# COPD
continue Breo Ellipta
# BPH
continue finasteride
# depression/anxiety
continue alprazolam, bupropion, escitalopram
# GERD
continue omeprazole
# spinal stenosis
# Acute on chronic sinusitis, noted
Clinically without significant symptom
Code status: full code
DVT proph: Lovenox sq
Discussed with field case manager
Total DC time 35 minutes
Original Note:
Today's Communication/Plan
-
Discharge today to [facility] ([facility])
Dispo medication : Cinacalcet and sinemet
Stop vitamin D until seen by endocrinology outpatient
F/u neurology at [facility]
Assessment / Plan
Assessment / Plan
Impression
Recurrent falls/generalized weakness
History of primary hypothyroidism/hypercalcemia
Essential hypertension
Hyperlipidemia
COPD
BPH
Depression/anxiety
GERD
Spinal stenosis
Acute on chronic sinusitis
Plan
Recurrent falls, generalized weakness--sees neuro at [facility]
Head CT without acute findings
Brain MRI also without acute findings
Neurology following
Continue carbidopa/levodopa at discharge
Medically stable to be discharged.
Discharge plan to [facility] today
Hx primary hyperparathyroidism/Hypercalcemia
Sees endocrinology outpatient
Continue Cinacalcet at discharge
Appreciate nephrology
Stop vitamin D at discharge until seen by endocrinology outpatient
Essential hypertension
continue amlodipine and metoprolol
hyperlipidemia
continue simvastatin
COPD
continue Breo Ellipta
BPH
continue finasteride
depression/anxiety
continue alprazolam, bupropion, escitalopram
GERD
continue omeprazole
spinal stenosis
may need MRIs as above
acute on chronic sinusitis--noted--would not start ABX at this point--may need outpt ENT
Code status--full code
DVT proph--Lovenox sq
Anticipated Discharge: Today
Subjective/Interval History
-
Date of Service: October 29, 2024
No overnight events
Objective Data
-
Labs:
Laboratory Results
10/29/24
07:22
WBC 5.4
Hgb 12.5 L
Hct 35.3 L
Plt Count 250
Sodium 140
Potassium 4.2
Chloride 106
Carbon Dioxide 24
BUN 23 H
Creatinine 1.3
Glucose 88
Calcium 10.0
Vital Signs:
Vital Signs
Temp Pulse Resp BP Pulse Ox
97.7 F 68 16 161/79 94
10/29/24 07:46 10/29/24 07:55 10/29/24 07:55 10/29/24 07:46 10/29/24 07:46
I&O
10/28/24 10/29/24 10/30/24
06:59 06:59 06:59
Intake Total 960 / 960 840 / 840
Output Total 1050 / 1050
Balance 960 / 960 -210 / -210
Review of Systems
-
All other systems: Reviewed and negative
Physical Exam
-
General: No Apparent Distress and Comfortable
HEENT: Normocephalic and Atraumatic
Respiratory: Clear to Auscultation
Cardiac: Regular Rhythm and S1/S2
GI: Nondistended
Skin: Warm and Dry
Neuro: AO x 3
Psych: Calm
Data Reviewed
-
Labs: Labs Reviewed by me and Discussed with Physician
[2024-10-29 12:47] LABS: COVID-19 Antigen Negative (Negative)
--- NOTE | 2024-10-29 13:20 | CM ---
Patient has a bed at [facility] today and patient is aware that he will need to private pay for skilled placement. Patient has been set up for a 2:30pm, by w/c van, patient has contact information to pay for transportation, COVID testing completed.
[facility]
Report [phone]

Plan; Patient to transfer to [facility] today.
[2024-10-29 13:53] VITALS: BP 118/72
--- NOTE | 2024-10-29 14:41 | W.DCSUMMARY ---
Documented by User: Flory Gil MD, Resident 10/29/24 15:06
Discharge Summary
Discharge Data
Date of Admission: 10/25/24
Date of Discharge: 10/29/24
-
Pending Results: No
Hospital Course
Discharging Physician : Dr Flory Gil, Dr Gay London. H
Disposition : SNF
Primary care physician :
Principal Discharge diagnosis :
Recurrent falls/generalized weakness
Hypercalcemia/primary hyperparathyroidism
Chronic Discharge diagnosis :
Essential hypertension
Hyperlipidemia
COPD
BPH
Depression/anxiety
GERD
Spinal stenosis
Acute on chronic sinusitis
Hospital Course :
84-year-old male presented to the ED with recurrent falls. Neurology evaluated the patient and dx with Parkinson's. He was getting worked up for the same at [facility]. Patient was started on Sinemet in the hospital. No intracranial
abnormality on head CT/ brain MRI. . Labs revealed hypercalcemia/ hyperparathyroid, patient was started on Cinacalcet per nephrology. PT/OT recommended SNF. Patient will be going to [facility] for rehab.
At discharge patient is hemodynamically stable, advised to continue Cinacalcet and Sinemet and to hold vitamin D until seen by endocrinology. Advised to follow-up with [facility] outpatient.
Important imaging findings :
10/26 brain MRI : No acute intracranial abnormality noted. Mild atrophy with sequelae of mild small vessel ischemic disease. There is complete opacification of the right maxillary sinus with moderate mucosal thickening and frothy, aerosolized
secretions in the left maxillary sinus suspicious for an element of acute on chronic sinusitis.
10/25/[address]: No acute intracranial abnormality noted. Findings of possible acute on chronic maxillary sinusitis. Recommend clinical correlation.
Procedure findings : none
Discharge Plan
-
Patient Disposition: Custodial/SNF
Discharge Diagnosis/Procedures: Recurrent falls with generalized weakness,
primary hyperparathyroidism with hypercalcemia,
essential hypertension,
hyperlipidemia,
chronic obstructive pulmonary disease,
benign prostatic hyperplasia,
depression/anxiety,
gastroesophageal reflux disease,
spinal stenosis,
acute on chronic sinusitis
Condition: Fair
Diet: Low Cholesterol and Low Sodium
Activity: As tolerated
Driving Restrictions: No driving until evaluated and deemed safe to do s
Bathing Restrictions: None
Referrals:
Neo Varela MD [Family Provider] - in less than 1 week
Additional Discharge Medication Instructions: Primary hyperparathyroidism/hypercalcemia
-Stop vitamin D tablets until seen by endocraniology
-Start taking cinacalcet one tablet by mouth once a day
Parkinson's disease
-Start taking sinemet 25/100 one tablet TID before meals, absorbs better on an empty stomach.\\
- Follow up with [facility]
- Fall precautions
Continue all other home medications
Prescriptions:
New
carbidopa-levodopa 25-100 mg Tablet
1 tab PO AC Qty: 30 0RF
cinacalcet 30 mg Tablet
30 mg PO DAILY Qty: 30 0RF
Continued
alprazolam [Xanax] 1 mg Tablet
0.5 mg PO HS
simvastatin 20 mg Tablet
20 mg PO HS
omeprazole 20 mg Capsule,Delayed Release(Dr/Ec)
20 mg PO DAILY
Phosphorous 250 mg Tablet
1 tab PO DAILY
metoprolol succinate 50 mg Tablet Extended Release 24 Hr
50 mg PO DAILY Qty: 0 0RF
amlodipine 5 mg Tablet
5 mg PO DAILY Qty: 0 0RF
bupropion HCl 100 mg Tablet
100 mg PO BID Qty: 0 0RF
finasteride 5 mg Tablet
5 mg PO HS Qty: 0 0RF
escitalopram oxalate [Lexapro] 20 mg Tablet
20 mg PO DAILY Qty: 0 0RF
fluticasone furoate-vilanterol [Breo Ellipta] 100-25 mcg/dose Blister With Device
1 inh INHALATION DAILY Qty: 0 0RF
Discontinued
cholecalciferol (vitamin D3) [Vitamin D3] 25 mcg (1,000 unit) Tablet
25 mcg PO DAILY
Discharge Orders:
Discharge Patient (As Directed); Ordered 10/29/24
Ordered By: Flory Gil
Discharge Date and Time
Discharge Date/Time: 10/29/24 14:15
Print Language: OMANI

Documented by User: Lita Rashid MD 10/29/24 15:23
Discharge Summary
Discharge Data
Date of Admission: 10/25/24
Date of Discharge: 10/29/24
Hospital Course
Discharging Physician : Dr Flory Gil, Dr Gay London. H
Disposition : SNF
Principal Discharge diagnosis :
Recurrent falls/generalized weakness due to Parkinson's
Hypercalcemia/primary hyperparathyroidism
Chronic Discharge diagnosis :
Essential hypertension
Hyperlipidemia
COPD
BPH
Depression/anxiety
GERD
Spinal stenosis
Acute on chronic sinusitis
Hospital Course :
84-year-old male presented to the ED with recurrent falls. Neurology evaluated the patient and dx of Parkinson's was made. Patient was started on Sinemet in the hospital and can continue going forward. For his falls, he had CT head and MRI brain
done which showed no intracranial abnormality. His blood work revealed hypercalcemia due to hyperparathyroidism (high PTH at 268). Patient was started on Cinacalcet per nephrology. PT/OT recommended SNF for dispo. Patient was discharged to [facility] for rehab.
At discharge patient was hemodynamically stable. He was advised to continue Cinacalcet and Sinemet and to hold vitamin D until seen by endocrinology. Advised to follow-up with [facility] outpatient.
Important imaging findings :
10/26 brain MRI : No acute intracranial abnormality noted. Mild atrophy with sequelae of mild small vessel ischemic disease. There is complete opacification of the right maxillary sinus with moderate mucosal thickening and frothy, aerosolized
secretions in the left maxillary sinus suspicious for an element of acute on chronic sinusitis.
10/25/[address]: No acute intracranial abnormality noted. Findings of possible acute on chronic maxillary sinusitis. Recommend clinical correlation.
Procedure findings : none
Discharge Plan
-
Patient Disposition: Custodial/SNF
Discharge Diagnosis/Procedures: Recurrent falls with generalized weakness,
primary hyperparathyroidism with hypercalcemia,
essential hypertension,
hyperlipidemia,
chronic obstructive pulmonary disease,
benign prostatic hyperplasia,
depression/anxiety,
gastroesophageal reflux disease,
spinal stenosis,
acute on chronic sinusitis
Condition: Fair
Diet: Low Cholesterol and Low Sodium
Activity: As tolerated
Driving Restrictions: No driving until evaluated and deemed safe to do s
Bathing Restrictions: None
Referrals:
Neo Varela MD [Family Provider] - in less than 1 week
Additional Discharge Medication Instructions: Primary hyperparathyroidism/hypercalcemia
-Stop vitamin D tablets until seen by endocraniology
-Start taking cinacalcet one tablet by mouth once a day
Parkinson's disease
-Start taking sinemet 25/100 one tablet TID before meals, absorbs better on an empty stomach.\\
- Follow up with [facility]
- Fall precautions
Continue all other home medications
Prescriptions:
New
carbidopa-levodopa 25-100 mg Tablet
1 tab PO AC Qty: 30 0RF
cinacalcet 30 mg Tablet
30 mg PO DAILY Qty: 30 0RF
Continued
alprazolam [Xanax] 1 mg Tablet
0.5 mg PO HS
simvastatin 20 mg Tablet
20 mg PO HS
omeprazole 20 mg Capsule,Delayed Release(Dr/Ec)
20 mg PO DAILY
Phosphorous 250 mg Tablet
1 tab PO DAILY
metoprolol succinate 50 mg Tablet Extended Release 24 Hr
50 mg PO DAILY Qty: 0 0RF
amlodipine 5 mg Tablet
5 mg PO DAILY Qty: 0 0RF
bupropion HCl 100 mg Tablet
100 mg PO BID Qty: 0 0RF
finasteride 5 mg Tablet
5 mg PO HS Qty: 0 0RF
escitalopram oxalate [Lexapro] 20 mg Tablet
20 mg PO DAILY Qty: 0 0RF
fluticasone furoate-vilanterol [Breo Ellipta] 100-25 mcg/dose Blister With Device
1 inh INHALATION DAILY Qty: 0 0RF
Discontinued
cholecalciferol (vitamin D3) [Vitamin D3] 25 mcg (1,000 unit) Tablet
25 mcg PO DAILY
Discharge Orders:
Discharge Patient (As Directed); Ordered 10/29/24
Ordered By: Flory Gil
Discharge Date and Time
Discharge Date/Time: 10/29/24 14:15
Print Language: OMANI
== END 2024-10-29 14:15 ==
LOC: 4 WEST ACU 19:07
PROVIDERS: Emergency Medicine; Internal Medicine; Nurse Practitioner Family; Student in an Organized Health Care Education/Training Program; ADMITTING PHYSICIAN Internal Medicine; ATTENDING PHYSICIAN Internal Medicine; CONSULT PHYSICIAN Psychiatry & Neurology Clinical Neurophysiology; CONSULT PHYSICIAN Specialist; EMERGENCY PHYSICIAN Emergency Medicine; FAMILY PHYSICIAN Internal Medicine
DX: R53.1 Weakness (principal); R29.6 Repeated falls; E21.0 Primary hyperparathyroidism; I10 Essential (primary) hypertension; J44.9 Chronic obstructive pulmonary disease, unspecified; R42 Dizziness and giddiness; D64.9 Anemia, unspecified; R41.0 Disorientation, unspecified; J01.90 Acute sinusitis, unspecified; I67.82 Cerebral ischemia; G31.9 Degenerative disease of nervous system, unspecified; M35.3 Polymyalgia rheumatica; G20.A1 Parkinson's disease without dyskinesia, without mention of fluctuations; E78.5 Hyperlipidemia, unspecified; N40.0 Benign prostatic hyperplasia without lower urinary tract symptoms; F41.9 Anxiety disorder, unspecified; F32.A Depression, unspecified; K21.9 Gastro-esophageal reflux disease without esophagitis; W06.XXXA Fall from bed, initial encounter; Y93.89 Activity, other specified; Y92.003 Bedroom of unspecified non-institutional (private) residence as the place of occurrence of the external cause; Z63.6 Dependent relative needing care at home; Z79.899 Other long term (current) drug therapy; Z79.51 Long term (current) use of inhaled steroids; Z11.52 Encounter for screening for COVID-19
CPT/HCPCS: 70450; 70551; 80048; 80053; 81003; 83735; 83970; 84100; 85025; 85027; 87070; 87811; 93005; 94640; 97116; 97163; 97167; 97530; 97535; 99285; G0378